=== PATIENT | male | born 1970 | race Caucasian/White ===

== ENCOUNTER 2017-01-11 19:45 | Emergency (ER) | payer SELFPAY | END 2017-01-11 22:46 | disposition home or self-care (01) | LOC: D.ER 19:45 | DX: S00.83XA Contusion of other part of head, initial encounter (principal); V09.9XXA Pedestrian injured in unspecified transport accident, initial encounter; Y93.89 Activity, other specified; Y92.89 Other specified places as the place of occurrence of the external cause ==